=== PATIENT | female | born 1940 | race Caucasian/White ===

== ENCOUNTER 2017-03-13 12:53 | Inpatient (IN) | payer MEDICARE, OTHER ==
[~2017-03-13] VITALS: Ht 162.6 cm; Wt 95.1 kg
--- NOTE | ~2017-03-13 | HEMODYNAMI ---
PATIENT:MILAGROS ISAACS MEDICAL RECORD: [id number] : 38 LOCATION:[facility] D.[address] [id number] ADMISSION DATE: 03/13/17 Generatedon:03/18/201711:48 Patient name: MILAGROS ISAACS Patient #: [id number] SSN: : 1940 Date of study: 03/18/2017 Page: Of Hemodynamic Procedure Report Patient Data Patient Demographics Procedure consent was obtained First Name: MILAGROS Gender: Female Last Name: SHITAL : 1940 Middle Initial: BINH Age: 76 year(s) Patient #: [id number] Race: Unknown Additional ID: [id number] Contact details [address]: [address] [place] [address] DRIVE State: [place] City: [place] Zip code: [address] Past Medical History Allergies Allergen Reaction Date Comments Reported Morphine 03/18/2017 Admission Admission Data Admission Date: 03/13/2017 Admission Time: 16:35 Room #: 2118 Weight (lbs.): 209 Weight (kg.): 94.8 Procedure Procedure Types Cath Procedure Peripheral Cath Diagnostic Procedure Miscellaneous Procedure Description Procedure Date Procedure Date: 03/18/2017 Procedure Start Time: 10:14 Procedure Staff Name Function Mason Fung MD Performing Physician Favio Lamar RT Scrub Ju Contreras RN Nurse Marianne Lu RT Chaser Tar Marianne Lu RT Monitor Mary Matthews RN Nurse Procedure Data Cath Procedure Fluoroscopy Diagnostic fluoroscopy Total fluoroscopy Time: time: 12.9 min 12.9 min Diagnostic fluoroscopy Total fluoroscopy dose: 50 dose: 50 mGy mGy Contrast Material Contrast Material Type Amount (ml) Isovue 300 55 Entry Location Entry Primary Successful Side Size Upsize Upsize Entry Closure Succes sful Closure Location (Fr) 1 (Fr) 2 (Fr) Remarks Device Remarks Femoral Left 5 Fr artery Femoral Left Exoseal artery Diagnostic catheters Device Type Used For End Catheter Placement Diagnostic 5Fr IMT Catheter Procedure Medications Medication Administration Route Dosage Oxygen NC 4 l/min Heparin Flush Bag added to field 2 bags (1000units/500ml NS) Lidocaine 1% added to field 20 Benadryl I.V. 50 mg Fentanyl I.V. 25 mcg Heparin Bolus I.V. 4000 units Hemodynamics Rest Heart Rate: 110 (bpm) Snapshots Pre Cath Intra NCS Post Cath Vital Signs Time Heart Resp SPO2 NIBP (mmHg) Rhythm Pain Sedation Rate (ipm) (%) Status Level (bpm) 9:56:56 104 19 96 69/50(58) NSR 0 (11) 10(A) , No pain 10:01:50 114 16 98 75/49(71) NSR 0 (11) 10(A) , No pain 10:05:50 112 18 96 88/59(79) NSR 0 (11) 10(A) , No pain 10:09:56 111 16 96 82/52(75) NSR 0 (11) 10(A) , No pain 10:14:00 109 17 97 82/51(69) NSR 0 (11) 10(A) , No pain 10:19:17 110 17 94 82/35(56) NSR 0 (11) 9(A) , No pain 10:24:02 109 17 98 80/50(72) NSR 0 (11) 9(A) , No pain 10:28:07 108 17 98 83/40(59) NSR 0 (11) 9(A) , No pain 10:32:15 106 17 99 95/39(56) NSR 0 (11) 9(A) , No pain 10:38:26 108 18 98 87/50(82) NSR 0 (11) 9(A) , No pain 10:48:41 108 16 98 129/45(68) NSR 0 (11) 9(A) , No pain 10:53:07 108 16 97 90/44(68) NSR 0 (11) 9(A) , No pain 11:02:16 108 19 98 143/104(124) NSR 0 (11) 9(A) , No pain 11:06:28 111 18 97 101/76(90) NSR 0 (11) 9(A) , No pain 11:10:32 110 20 97 96/64(76) NSR 0 (11) 9(A) , No pain 11:14:39 112 18 98 85/62(77) NSR 0 (11) 9(A) , No pain 11:18:45 113 19 90 82/64(74) NSR 0 (11) 9(A) , No pain 11:22:43 112 17 91 96/76(86) NSR 0 (11) 9(A) , No pain 11:28:37 112 16 96 82/52(64) NSR 0 (11) 9(A) , No pain 11:32:33 125 17 87 93/78(86) NSR 0 (11) 9(A) , No pain 11:37:34 114 16 95 113/95(103) NSR 0 (11) 9(A) , No pain 11:42:33 112 7 93 Measuring NSR 0 (11) 9(A) , No pain 11:43:57 131 8 94 Time NSR 0 (11) 9(A) Exceeded , No pain Medications Time Medication Route Dose Verified Delivered Reason Notes Effectiveness by by 10:08:01 Oxygen NC 4 Mary Ju used for l/min Cassie Contreras frame sample and pattern supervisor RN 10:08:15 Heparin Flush added 2 Mary Ju used for Bag to bags Cassie Contreras procedure (1000units/500ml field RN RN NS) 10:08:55 Lidocaine 1% added 20ml Mary Ju used for to vial Cassie Contreras procedure RN RN 10:09:15 Benadryl I.V. 50 mg Mayr Ju Per physician Cassie Contreras RN RN 10:17:39 Fentanyl I.V. 25 Mary Ju for sedation mcg Cassie Contreras RN RN 10:22:22 Heparin Bolus I.V. 4000 Mary Ju for units Cassie Contreras anticoagulation RN human resources leader Log Time Note 9:53:29 Patient Weight : 209 kg 9:54:50 Time tracking: Regular hours 9:55:29 Plan of Care:Hemodynamics will remain stable., Cardiac rhythm will remain stable., Comfort level will be maintained., Respiratory function will remain adequate., Patient/ family verbilizes understanding of procedure., Procedure tolerated without complication., Recovers from procedure without complications.. 9:55:36 Patient received from Med II to IR Alert and oriented. Tansferred to table in Supine position. 9:55:37 Correct patient and procedure confirmed by team. 9:55:40 Signed procedure consent form obtained from guardian. 9:55:41 ECG and BP/O2 sat monitors applied to patient. 9:55:43 Vital chart was started 9:55:44 Baseline sample Acquired. 9:55:47 Full Disclosure recording started 9:55:47 - 9:55:52 H&P Date Dictated: 03/18/2017 Within 30 days and on chart.. 9:55:56 Family unavailable. 9:55:59 Patient NPO since Midnight. 9:56:11 Patient allergic to Morphine 9:56:23 Is patient on blood thinner?Yes 9:56:59 Previous problem with sedation/anesthesia? No ? 9:57:02 Snore? No 9:57:04 Sleep apnea? No 9:57:07 Deviated septum? No 9:57:09 Opens mouth fully? Yes 9:57:11 Sticks out tongue? Yes 9:57:19 Patient diabetic? Yes. 9:57:22 If diabetic: On Metformin? No 9:57:26 Airway obstruction? No ? 9:57:33 Dentures? No ? 9:57:35 - 9:57:39 Pre procedure: right dorsailis pedis pulse 0-Absent 9:57:44 Pre procedure: right posterior tibial pulse 0-Absent 9:57:50 Pre procedure: left dorsailis pedis pulse 0-Absent 9:57:57 Pre procedure: left posterior tibial pulse Doppler 9:58:05 IV patent on arrival in left forearm with 0.9% NaCl at O. 9:58:25 Left groin area was prepped with chlora-prep and draped in sterile fashion 9:58:28 - 9:58:33 Use device set IR Diagnostic 9:58:35 Sterile Angiographic Pack opened to sterile field. 9:58:36 Bag Decanter opened to sterile field. 9:59:02 A Diagnostic 5Fr IMT Catheter was advanced over the wire and used for . 9:59:29 Elli HealthSON 145cm guide wire opened to sterile field. 9:59:30 Terumo 5Fr Willis Sheath opened to sterile field. 9:59:33 Micropuncture VSI 4FR kit opened to sterile field. 10:03:55 Alarms reviewed by RKristel N. 10:03:57 Sharps counted by scrub and verified by RKristelNKristel 10:04:06 - 10:04:40 Messi SMALL 260 guide wire opened to sterile field. 10:08:01 Oxygen 4 l/min NC was administered by Ju Contreras RN; used for procedure; 10:08:15 Heparin Flush Bag (1000units/500ml NS) 2 bags added to field was administered by Ju Contreras RN; used for procedure; 10:08:55 Lidocaine 1% 20ml vial added to field was administered by Ju Contreras RN; used for procedure; 10:09:15 Benadryl 50 mg I.V. was administered by Ju Contreras RN; Per physician ; 10:09:36 Messi VALENTINORUNNER 260 .035 glide wire opened to sterile field. 10:09:46 Terumo 6Fr Willis Destination Sheath opened to sterile field. 10:12:29 Physician arrived 10:13:02 --------ALL STOP TIME OUT------ 10:13:03 Final Timeout: patient, procedure, and site verified with staff and physician. All members of the team are in agreement. 10:13:14 Physical assessment completed. ASA score P 3 - A patient with severe systemic disease as per Mason Fung MD. 10:13:24 Sedation plan: IV Moderate Sedation Versed, Fentanyl 10:14:29 Procedure started. 10:14:35 Local anesthetic to left femerol artery with Lidocaine 1% by Mason Fung MD.INITIAL ACCESS ONLY 10:14:39 Arterial access obtained using ultrasound guidance. 10:14:58 A 5 Fr sheath was inserted into the Left Femoral artery 10:17:39 Fentanyl 25 mcg I.V. was administered by Ju Contreras RN; for sedation ; 10:22:22 Heparin Bolus 4000 units I.V. was administered by Ju Contreras RN; for anticoagulation; 10:25:23 CXI SUPPORT .035 135 CM STR catheter opened to sterile field. 10:29:53 [place] Sci Choice PT Extra Support J 300cm .014 gu opened to sterile field. 10:32:19 Turbohawk 1 Small Atherectomy catheter opened to sterile field. 10:42:36 BasixTOUCH Inflation Syringe opened to sterile field. 10:46:26 Inflation number: 1 A Saber 2.5 X 2 X 150 balloon was prepped and advanced across the Undefined1, then inflated to 15 CARLOS for 0:10 (min:sec). 10:58:16 Inflation number: 1 A IN.PACT Admiral 4.0 x 80 x 135 DCB Balloon was prepped and advanced across the Undefined2, then inflated to 14 CARLOS for 0:03 (min:sec). 10:59:49 [place] Sci Choice PT Floppy J 300cm 0.014 guide wi opened to sterile field. 11:02:12 Inflation number: 1 A Saber 3.0 X 2 X 150 balloon was prepped and advanced across the Undefined3, then inflated to 14 CARLOS for 0:10 (min:sec). 11:07:18 St Aris 6Fr sheath opened to sterile field. 11:13:27 Cordis 6Fr Exoseal opened to sterile field. 11:13:27 Sheath removed intact; hemostasis achieved with Exoseal to the Left Femoral artery. 11:14:30 Procedure ended.(Physican Out) 11:16:43 Fluoroscopy time 12.90 minutes. 11:16:48 Flurop Dose total: 50 11:16:48 Fluoroscopy dose: 50 mGy 11:16:55 Contrast amount:Isovue 300 55ml. 11:16:57 Sharps counted by scrub and verified by R.N. 11:18:27 A sheath was inserted into the Left Femoral artery 11:47:43 Procedure and supply charges have been captured, reviewed, submitted an d are correct. 11:48:04 Vital chart was stopped Intervention Summary Intervention Notes Time ActionType Lesion and Equipment Action# Pressure Duration Attributes Used 10:46:26 Inflate Undefined1 Saber 2.5 1 15 00:10 balloon X 2 X 150 balloon 10:58:16 Inflate Undefined2 IN.PACT 1 14 00:03 balloon Admiral 4.0 x 80 x 135 DCB Balloon 11:02:12 Inflate Undefined3 Saber 3.0 1 14 00:10 balloon X 2 X 150 balloon Device Usage Item Name Manufacture Quantity Catalog Number Hospital Part Current Nv nimal Lot# / Charge Number Stock Stock Serial# Code Sterile Cardinal 1 [id number] 952468 5 Angiographic Health Pack Bag Decanter Microtek 1 2002S 727659 11730 557777 5 [employer] Diagnostic [place] 1 [id number] 737525 066354 44095 5 5Fr IMT Scientific Catheter [facility] 1 [id number] 021763 526895 5 [id number] 145cm guide wire Terumo 5Fr Terumo 1 GTH136 364221 190103 566297 40 Willis Sheath Micropuncture VSI VASCULAR 1 [id number] 308551 923891 5 VSI 4FR kit SOLUTIONS [facility] 1 Z79111 421891 275498 5 1860205 260 guide wire [facility] 1 [id number] 303319 483049 5 [id number] ROADRUNNER 260 .035 glide wire Terumo 6Fr Terumo 1 RSR01 705658 27050 331796 5 Willis Destination Sheath CXI SUPPORT [facility] 1 J25058 187892 975417 5 8148687 .035 135 CM STR catheter [place] Sci [place] 1 [id number] 373086 509648 549960 5 Choice PT Scientific Extra Support J 300cm .014 gu Turbohawk 1 Ev3 1 H1-S 706399 1649773 307715 5 Small Atherectomy catheter [facility] 1 [id number] 021938 166291 257990 5 Inflation Medical Syringe Saber 2.5 X 2 Cardinal 1 [id number] 833992 055785 5 X 150 balloon Health IN.PACT Medtronic 1 [id number] 793362 314371 840569 5 [id number] Admiral 4.0 x 80 x 135 DCB Balloon [place] Sci [place] 1 [id number] 669511 580481 299136 5 Choice PT Scientific Floppy J 300cm 0.014 guide wi Saber 3.0 X 2 Cardinal 1 [id number] 346077 610295 5 X [address] Aris [address] [facility] Aris 1 915658 087331 158705 5 9189169 sheath Cordis 6Fr Cardinal 1 EX600 337634 096570 325386 10 [id number] [facility] Signature Audit [place] Stage Time Signature Unsigned Intra-Procedure 03/18/2017 Marianne Lu 11:48:01 AM RT(R) Signatures Monitor : Marianne Lu RT Signature : Date : Time : [place] [id number] [place] [address]
[2017-03-13 14:13] LABS: BASOPHILS 0.1 % (0-2); EOSINOPHILS 1.2 % (0-7); HEMATOCRIT 40.4 % (36.0-48.0); HEMOGLOBIN 13.2 g/dL (12-16); LYMPHOCYTES 22.3 % (15-50); MCH 30.3 pg (26.0-34.0); MCHC 32.7 g/dL (31.0-37.0); MCV 92.9 fL (80.0-100.0); MEAN PLATELET VOLUME 10.4 fL (7.4-10.4); MONOCYTES 5.9 % (2-11); NEUTROPHILS 70.5 % (40-80); PLATELET COUNT 172 10x3/uL (130-400); RBC 4.35 10x6/uL (4.00-5.40); RDW 15.2 % (11.5-14.5); WBC 6.8 10x3/uL (4.8-10.8)
[2017-03-13 14:33] LABS: ALBUMIN 3.3 g/dL (3.4-5.0); ALKALINE PHOSPHATASE 74 U/L (46-116); ALT (SGPT) 15 U/L (10-68); BILIRUBIN - TOTAL 0.63 mg/dL (0.2-1.3); CALC OSMOLALITY 280 mosm/kg (275-300); CALCIUM 9.3 mg/dL (8.5-10.1); CARBON DIOXIDE 21.9 mmol/L (21.0-32.0); CHLORIDE - SERUM 96 mmol/L (98-107); CREATININE - SERUM 4.1 mg/dL (0.6-1.3); POTASSIUM - SERUM 4.4 mmol/L (3.5-5.1); PROTEIN - SERUM 8.1 g/dL (6.4-8.2); SODIUM 130 mmol/L (136-145); UREA NITROGEN 59 mg/dL (7-18); eGFR NON AFRICAN AMERICAN 11 mL/min (90-120)
[2017-03-13 14:34] LABS: GLUCOSE 150 mg/dL (74-106)
[2017-03-13 14:40] LABS: INR 3.56 (0.85-1.17)
[2017-03-13 14:41] LABS: APTT 51.6 SECONDS (22.8-39.4)
[2017-03-13 14:57] LABS: D-DIMER-QUANTITATIVE < 0.27 ug/mLFEU (0.20-0.54)
[2017-03-13 14:58] LABS: CHOL - HDL RATIO 2.7 ratio (2.3-4.1); CHOLESTEROL, TOTAL 150 mg/dL (0-200); CKMB 4.2 U/L (0.0-3.6); CREATINE KINASE 67 UL (21-215); HDL CHOLESTEROL 55 mg/dL (32-96); LDL CHOLESTEROL 70 mg/dL (0-100); LDL-HDL RATIO 1.3 ratio (1.5-3.5); TRIGLYCERIDE 128 mg/dL (30-200)
[2017-03-13 15:02] LABS: PRO BNP 31802 pg/mL (0-450)
[2017-03-13 15:04] LABS: TROPONIN-I 0.103 ng/mL (0.000-0.060)
--- NOTE | 2017-03-13 18:24 | NUR ---
RECEIVED PT TO ROOM 2117 VIA STRETCHER RESP UNLABORED SKIN COOL DRY BLEs WITH 4+ EDEMA AND RED PPPX4 WEAK IN LOWER EXTREMITIES TELEMETRY APPLIED CAF RATE 80 SALINE LOCK TO LAC WITH 20 GA IV CATH SITE FREE OF REDNESS OR EDEMA
[2017-03-13 19:44] VITALS: BMI 21.1
--- NOTE | 2017-03-13 19:55 | NUR ---
INITIAL ROUNDS MADE.PT SITTING UP IN BED WATCHING TV. DENIES NEEDS OR C/O AT THIS TIME. CALL LIGHT IN REACH. WILL CONT TO MONITOR. FAMILY IN ROOM.
[2017-03-13 20:00] VITALS: BP 104/49
--- NOTE | 2017-03-13 20:30 | NUR ---
CALLED CHIEF OF POLICE WITH NEED FOR ZOSYN, NEW ORDER.
[2017-03-13] MEDS ORDERED: GABAPENTIN100 MG PO (20:52)
[2017-03-13] MEDS ORDERED: RESTORIL15 MG PO (20:52)
[2017-03-13] MEDS ORDERED: HYDROCODONE-APA1 TAB PO (20:53)
[2017-03-13] MEDS ORDERED: BENICAR HCT 40-1 TA1 PO (20:53)
--- NOTE | 2017-03-13 21:12 | NUR ---
FSBS 111. NO COVERAGE NEEDED.
[2017-03-13 21:29] LABS: CREATINE KINASE 49 UL (21-215)
--- NOTE | 2017-03-13 21:45 | NUR ---
REMINDED SUPERVISOR WARPING DEPARTMENT NEED ZOSYN.
[2017-03-14] VITALS: BP 103/53
--- NOTE | 2017-03-14 00:29 | NUR ---
CARCASS TRIMMER AT BEDSIDE FOR VS. NEEDS ADDRESSED, CALL LIGHT IN REACH. WILL CONT TO MONITOR.
[2017-03-14 02:02] LABS: APPEARANCE CLEAR (CLEAR); BILIRUBIN NEGATIVE (NEGATIVE); COLOR YELLOW (YELLOW); GLUCOSE NEGATIVE (NEGATIVE); KETONE NEGATIVE (NEGATIVE); LEUKOCYTE ESTERASE NEGATIVE (NEGATIVE); NITRITE NEGATIVE (NEGATIVE); PROTEIN NEGATIVE (NEGATIVE); SPECIFIC GRAVITY 1.015 (1.005-1.020); UROBILINOGEN NORMAL (NORMAL)
[2017-03-14 03:36] LABS: BASOPHILS 0 % (0-2); HEMATOCRIT 33.7 % (36.0-48.0); HEMOGLOBIN 11.2 g/dL (12-16); IMMATURE GRANULOCYTES 0.2 % (0-5); LYMPHOCYTES 28.5 % (15-50); MCH 30.1 pg (26.0-34.0); MCHC 33.2 g/dL (31.0-37.0); MEAN PLATELET VOLUME 10.5 fL (7.4-10.4); MONOCYTES 8.1 % (2-11); NEUTROPHILS 62.2 % (40-80); PLATELET COUNT 149 10x3/uL (130-400); RBC 3.72 10x6/uL (4.00-5.40); RDW 15.1 % (11.5-14.5)
[2017-03-14 03:39] LABS: MCV 90.6 fL (80.0-100.0)
[2017-03-14 03:49] LABS: APTT 53.4 SECONDS (22.8-39.4); INR 4.02 (0.85-1.17); PROTIME 39.7 SECONDS (11.6-15.0)
[2017-03-14 04:00] VITALS: BP 114/57
[2017-03-14 04:09] LABS: ALBUMIN 2.7 g/dL (3.4-5.0); ALKALINE PHOSPHATASE 58 U/L (46-116); AMYLASE - SERUM 27 U/L (25-115); BILIRUBIN - DIRECT 0.27 mg/dL (0.00-0.30); BILIRUBIN - TOTAL 0.63 mg/dL (0.2-1.3); C-REACTIVE PROTEIN 3.1 mg/dL (0.0-0.9); CALCIUM 8.6 mg/dL (8.5-10.1); CARBON DIOXIDE 20.8 mmol/L (21.0-32.0); CHLORIDE - SERUM 98 mmol/L (98-107); CKMB 3.7 U/L (0.0-3.6); CREATINE KINASE 40 UL (21-215); CREATININE - SERUM 3.8 mg/dL (0.6-1.3); LIPASE 180 U/L (73-393); POTASSIUM - SERUM 4.5 mmol/L (3.5-5.1); PROTEIN - SERUM 6.5 g/dL (6.4-8.2); SODIUM 131 mmol/L (136-145); THYROID STIMULATING HORMONE 2.73 uIU/mL (0.36-3.74); UREA NITROGEN 62 mg/dL (7-18); eGFR NON AFRICAN AMERICAN 12 mL/min (90-120)
[2017-03-14 04:17] LABS: ALT (SGPT) 11 U/L (10-68); CALC OSMOLALITY 280 mosm/kg (275-300); GLUCOSE 99 mg/dL (74-106); PRO BNP 34611 pg/mL (0-450); TROPONIN-I 0.152 ng/mL (0.000-0.060)
[2017-03-14 04:45] LABS: ERYTHROCYTE SEDIMENTATION RATE 22 mm/hr (0-30)
[2017-03-14 08:40] VITALS: BP 97/42
[2017-03-14 09:48] LABS: CKMB 2.8 U/L (0.0-3.6); CREATINE KINASE 50 UL (21-215); TROPONIN-I 0.116 ng/mL (0.000-0.060)
--- NOTE | 2017-03-14 11:18 | NUR ---
I SPOKE WITH DR CHERY R/T PATIENT'S SWOLLEN RED LEGS. PT/INR IS 39.7/4.02, PTT IS 53.4. HE DOES NOT WANT ANY FURTHER BLOOD THINNERS OR SCD'S AT THIS TIME.
[2017-03-14 12:31] VITALS: BP 110/49
[2017-03-14 12:37] VITALS: Ht 162.6 cm; Wt 95.1 kg
[2017-03-14 16:58] VITALS: BP 116/59
[2017-03-14 19:00] VITALS: BP 67/36
--- NOTE | 2017-03-14 19:00 | NUR ---
INITIAL ROUNDS MADE. PT SITTING UP ON SIDE OF BED WITH AT BEDSIDE. C/O FEELING VERY WEAK, "EVEN WEAKER AND MORE 'BLAH' THAN YESTERDAY". ENCOURAGE PT TO USE BEDPAN WHEN NEEDING TO VOID TONIGHT, PT AGREEABLE.
[2017-03-15] VITALS: BP 103/47
--- NOTE | 2017-03-15 00:05 | NUR ---
FLIGHT INSTRUCTOR AT BEDSIDE FOR VS. NEEDS ADDRESSED AT THIS TIME. CALL LIGHT IN REACH. WILL CONT TO MONITOR.
--- NOTE | 2017-03-15 04:58 | NUR ---
IV PULLED OUT FROM LEFT AC, CATH TIP INTACT. RESITED TO LEFT FA, 20G X1 STICK BY FRANKIE BRIGHT. RESUMED BUMEX GTT AT THIS TIME.
[2017-03-15 05:38] VITALS: BP 83/40
[2017-03-15 05:46] LABS: BASOPHILS 0.1 % (0-2); EOSINOPHILS 0.9 % (0-7); HEMOGLOBIN 12.2 g/dL (12-16); LYMPHOCYTES 34.8 % (15-50); MCH 30.1 pg (26.0-34.0); MCV 91.4 fL (80.0-100.0); MONOCYTES 7.1 % (2-11); NEUTROPHILS 57.1 % (40-80); PLATELET COUNT 173 10x3/uL (130-400); RBC 4.05 10x6/uL (4.00-5.40); RDW 15.4 % (11.5-14.5)
[2017-03-15 06:27] LABS: CALCIUM 8.9 mg/dL (8.5-10.1); CARBON DIOXIDE 18.1 mmol/L (21.0-32.0); CREATININE - SERUM 3.8 mg/dL (0.6-1.3); POTASSIUM - SERUM 4.1 mmol/L (3.5-5.1)
[2017-03-15 12:00] VITALS: BP 73/32
--- NOTE | 2017-03-15 15:02 | NUR ---
TELEMETRY SR. AT BS. CALL LIGHT IN REACH. WILL CONT. PLAN OF CARE.
[2017-03-15 16:28] VITALS: BP 99/44
--- NOTE | 2017-03-15 19:00 | NUR ---
INITIAL ROUNDS MADE. PT SITTING UP IN BED WATCHING TV. NO NEEDS OR C/O VOICED AT THIS TIME. CALL LIGHT IN REACH. WILL CONT TO MONITOR.
[2017-03-15 20:00] VITALS: BP 93/55
[2017-03-15 22:57] LABS: HEMATOCRIT 33.7 % (36.0-48.0); HEMOGLOBIN 11.1 g/dL (12-16); MCH 30.2 pg (26.0-34.0); MCHC 32.9 g/dL (31.0-37.0); MCV 91.6 fL (80.0-100.0); MEAN PLATELET VOLUME 10.5 fL (7.4-10.4); RBC 3.68 10x6/uL (4.00-5.40); RDW 15.4 % (11.5-14.5); WBC 5.4 10x3/uL (4.8-10.8)
[2017-03-15 23:48] LABS: APTT 56.8 SECONDS (22.8-39.4); INR 3.88 (0.85-1.17); PROTIME 38.6 SECONDS (11.6-15.0)
[2017-03-16] VITALS: BP 101/51
[2017-03-16 04:00] VITALS: BP 89/45
--- NOTE | 2017-03-16 04:40 | NUR ---
LEATHER STRETCHER AT BEDSIDE FOR VS. NEEDS ADDRESSED AT THIS TIME. CALL LIGHT IN REACH. WILL CONT TO MONITOR.
[2017-03-16 06:36] LABS: BASOPHILS 0.1 % (0-2); EOSINOPHILS 0.4 % (0-7); HEMATOCRIT 34.7 % (36.0-48.0); HEMOGLOBIN 11.5 g/dL (12-16); IMMATURE GRANULOCYTES 0.2 % (0-5); LYMPHOCYTES 17.4 % (15-50); MCH 30.5 pg (26.0-34.0); MCHC 33.1 g/dL (31.0-37.0); MEAN PLATELET VOLUME 10.8 fL (7.4-10.4); MONOCYTES 6.4 % (2-11); NEUTROPHILS 75.5 % (40-80); PLATELET COUNT 144 10x3/uL (130-400); RBC 3.77 10x6/uL (4.00-5.40); RDW 15.9 % (11.5-14.5)
[2017-03-16 06:48] LABS: WBC 11.3 10x3/uL (4.8-10.8)
[2017-03-16 07:09] LABS: ALBUMIN 2.7 g/dL (3.4-5.0); ANION GAP 21.1 mmol/L (8-16); BILIRUBIN - TOTAL 0.6 mg/dL (0.2-1.3); CALCIUM 8.6 mg/dL (8.5-10.1); CARBON DIOXIDE 17.9 mmol/L (21.0-32.0); CREATININE - SERUM 4.4 mg/dL (0.6-1.3); PHOSPHOROUS 7.3 mg/dL (2.5-4.9); VANCOMYCIN - RANDOM 10.2 ug/mL (10.0-20.0)
[2017-03-16 07:15] LABS: INR 4.38 (0.85-1.17); PROTIME 42.5 SECONDS (11.6-15.0)
[2017-03-16 08:07] LABS: APTT > 200.0 SECONDS (22.8-39.4)
[2017-03-16 08:33] VITALS: BP 70/30
[2017-03-16 13:17] VITALS: BP 113/86
--- NOTE | 2017-03-16 13:56 | NUR ---
Patient Name: MILAGROS ISAACS Admission Status: ER Accout number: [id number] Admission Date: 03-13-2017 : 1940 Admission Diagnosis:HEART FAILURE, UNSPECIFIED Attending: LORENA Current LOS: 3 Anticipated DC Date: TO BE DETERMINED Planned Disposition: Home Primary Insurance: MEDICARE A & B Discharge Planning Comments: * Is the patient Alert and Oriented? Yes 0 * How many steps to enter\exit or inside your home? NONE 0 * PCP DR. SINGH 0 * Pharmacy [facility] 0 * Preadmission Environment Home with Family 0 * ADLs Partial Dependent 0 * Partial ADLs (Assistance needed) Medication Management Transfers 0 * Equipment Cane Walker 0 * Other Equipment NO MEDICAL EQUIPMENT PROVIDER PREFERENCE 0 * List name and contact numbers for known caregivers / representatives who currently or will assist patient after discharge: EMI ISAACS, SPOUSE, 0 * Community resources currently utilized None 0 * Please name any agencies selected above. NONE 0 * Additional services required to return to the preadmission environment? No 0 * Can the patient safely return to the preadmission environment? Yes 0 * Has this patient been hospitalized within the prior 30 days at any hospital? No 0 CM MET WITH PT IN ROOM TO DISCUSS DISCHARGE PLANNING AND NEEDS. PT REPORTS LIVING AT HOME DEPENDENT UPON HER SPOUSE WHO ASSISTS WITH MEDICATION MANAGEMENT AND TRANSFERS TO TUB AND TOILET. PT HAS CANE AND WALKER AT [facility] WITH NO MEDICAL EQUIPMENT PROVIDER PREFERENCE. PT HAS NO OUTSIDE SERVICES ASSISTING IN THE HOME. CM DISCUSSED AVAILABILITY OF HOME HEALTH, REHAB SERVICES AND MEDICAL EQUIPMENT. PT REPORTS UNKNOWN DISCHARGE NEEDS AT THIS TIME WITH PLAN TO RETURN HOME WITH SPOUSE, REPORTS HER SPOUSE WILL PICK HER UP FOR DISCHARGE HOME. IMPORTANT MESSAGE FROM MEDICARE PROVIDED AND EXPLAINED. PT HAS UNKNOWN DISCHARGE NEEDS WITH PLAN TO RETURN HOME WITH ASSISTANCE OF SPOUSE. CM TO FOLLOW AND ASSIST NEEDED. Stove Carriage Operator: Carlos Bates
[2017-03-16 17:30] VITALS: BP 84/38
[2017-03-16 20:00] VITALS: BP 98/58
--- NOTE | 2017-03-16 20:02 | NUR ---
RESUMED CARE OF PT, LYING IN BED RESPIRATIONS EVEN AND UNLABORED ON 2LPM VIA NC. 97 SR ON TELEMETRY. LEFT FOREARM INFUSING HEPARIN @ 4. REPOSITIONED FOR COMFORT TO LEFT SIDE. FAMILY AT BEDSIDE. CALL LIGHT IN REACH. WILL CONTINUE TO MONITOR. SEE NURSE ASSESSMENT.
--- NOTE | 2017-03-16 20:10 | NUR ---
SPOKE WITH BRENDEN PRUITT APN ABOUT VITAMIN K SHOT FOR ELEVATED INR, SHE WANTS US TO REFER THIS TO CARDIAC. WILL CONTINUE TO MONITOR.
--- NOTE | 2017-03-16 21:28 | NUR ---
DR. RUIZ, REGARDING VITAMIN K INJECTION. AWAITING CALL BACK.
--- NOTE | 2017-03-16 22:46 | NUR ---
SPOKE WITH STEPHANY FROM IR, AT THIS TIME I HAVE BEEN UNABLE TO OBTAIN ORDERS FOR A VITAMIN K INJECTION. WILL HOLD OFF UNTIL AM.
--- NOTE | 2017-03-16 23:39 | NUR ---
UNABLE TO OBTAIN LAB DRAW AT THIS TIME, WILL ATTEMPT AGAIN IN THE AM
[2017-03-17] VITALS: BP 92/42
[2017-03-17 06:55] LABS: BASOPHILS 0.1 % (0-2); EOSINOPHILS 0.5 % (0-7); HEMATOCRIT 32.3 % (36.0-48.0); HEMOGLOBIN 10.4 g/dL (12-16); IMMATURE GRANULOCYTES 0.4 % (0-5); LYMPHOCYTES 24.8 % (15-50); MCH 29.7 pg (26.0-34.0); MCHC 32.2 g/dL (31.0-37.0); MCV 92.3 fL (80.0-100.0); MONOCYTES 7.1 % (2-11); NEUTROPHILS 67.1 % (40-80); PLATELET COUNT 138 10x3/uL (130-400)
[2017-03-17 07:00] LABS: WBC 7.9 10x3/uL (4.8-10.8)
[2017-03-17 07:12] LABS: PROTIME 34.3 SECONDS (11.6-15.0)
[2017-03-17 07:15] LABS: INR 3.35 (0.85-1.17)
[2017-03-17 07:16] LABS: ANION GAP 17.5 mmol/L (8-16); CALCIUM 8.6 mg/dL (8.5-10.1); CARBON DIOXIDE 18.3 mmol/L (21.0-32.0); CREATININE - SERUM 4.9 mg/dL (0.6-1.3); POTASSIUM - SERUM 3.8 mmol/L (3.5-5.1)
[2017-03-17 07:54] VITALS: BP 140/86
--- NOTE | 2017-03-17 09:00 | NUR ---
WOUND CARE CONSULT: SACRAL/COCCYX AREA IS BLANCHABLE RED AND TENDER. PT IS VERY THIN ALSO. SHE DOES NOT WANT AN OVERLAY MATTRESS. SHE IS HAVING DIFFICULTY REPOSITIONING OFF HER BOTTOM D/T HAVING TO KEEP HER LEGS ELEVATED. RIGHT LOWER LEG IS DISCOLORED PURPLE AND HAS DEVELOPED BLISTERS. APPLIED A MEPILEX SACRAL DRESSING OVER SACRUM FOR EXTRA CUSHION BUT ALSO STRESSED THE IMPORTANCE OF PRESSURE RELIEF. ALL VOICED UNDERSTANDING.
[2017-03-17 12:01] VITALS: BP 101/82
[2017-03-17 16:41] VITALS: BP 90/74
[2017-03-17 20:00] VITALS: BP 109/87
[2017-03-18] VITALS (16 sets, daily range): BP systolic 77–107; BP diastolic 43–77
--- NOTE | 2017-03-18 00:35 | NUR ---
SUPERVISOR CUTTING AND SEWING ROOM AT BEDSIDE TO OBTAIN VITALS, CALL LIGHT IN REACH. WILL CONTINUE WITH PLAN OF CARE.
[2017-03-18 06:10] LABS: BASOPHILS 0.1 % (0-2); EOSINOPHILS 0.3 % (0-7); HEMATOCRIT 30.4 % (36.0-48.0); IMMATURE GRANULOCYTES 0.1 % (0-5); LYMPHOCYTES 16.8 % (15-50); MCH 30.4 pg (26.0-34.0); MCHC 32.9 g/dL (31.0-37.0); MCV 92.4 fL (80.0-100.0); MEAN PLATELET VOLUME 10.9 fL (7.4-10.4); MONOCYTES 6.5 % (2-11); NEUTROPHILS 76.2 % (40-80); PLATELET COUNT 121 10x3/uL (130-400); RBC 3.29 10x6/uL (4.00-5.40); RDW 16.2 % (11.5-14.5); WBC 7.7 10x3/uL (4.8-10.8)
[2017-03-18 06:26] LABS: APTT 66.7 SECONDS (22.8-39.4)
[2017-03-18 06:29] LABS: INR 1.64 (0.85-1.17); PROTIME 19.4 SECONDS (11.6-15.0)
[2017-03-18 06:32] LABS: ALBUMIN 2.3 g/dL (3.4-5.0); ANION GAP 20.2 mmol/L (8-16); BILIRUBIN - TOTAL 0.5 mg/dL (0.2-1.3); CALCIUM 8.5 mg/dL (8.5-10.1); CREATININE - SERUM 5.5 mg/dL (0.6-1.3); PHOSPHOROUS 8.8 mg/dL (2.5-4.9); POTASSIUM - SERUM 4.2 mmol/L (3.5-5.1); PROTEIN - SERUM 6.3 g/dL (6.4-8.2); VANCOMYCIN - RANDOM 22.7 ug/mL (10.0-20.0)
--- NOTE | 2017-03-18 06:33 | NUR ---
NO CHANGES FROM PREVIOUS ASSESSMENT, CALL LIGHT IN REACH. HIBICLENSE BATH AND LINENS CHANGED. INR THERAPEUTIC @ 1.64. REMAINS NPO. WILL CONTINUE TO MONITOR.
--- NOTE | 2017-03-18 07:08 | NUR ---
FSBS 77 NO COVERAGE
[2017-03-18 08:22] LABS: SPE - A/G RATIO 0.9 (0.7-1.7); SPE - ALBUMIN 3.1 g/dL (2.9-4.4); SPE - ALPHA-1 GLOBULIN 0.3 g/dL (0.0-0.4); SPE - ALPHA-2 GLOBULIN 0.5 g/dL (0.4-1.0); SPE - BETA GLOBULIN 0.9 g/dL (0.7-1.3); SPE - GAMMA GLOBULIN 1.6 g/dL (0.4-1.8); SPE - M-SPIKE 0.2 g/dL (Not Observed); SPE - TOTAL PROTEIN 6.4 g/dL (6.0-8.5)
--- NOTE | 2017-03-18 08:26 | EC ---
PATIENT:MILAGROS ISAACS DATE OF SERVICE: 03/13/17 SEX: F MEDICAL RECORD: [id number] DATE OF : [birth year] LOCATION:D.M2 D.211 AGE OF PATIENT: 76 ADMISSION DATE: 03/13/17 REFERRING PHYSICIAN: INTERPRETING PHYSICIAN: BENITA TAO MD ECHOCARDIOGRAM REPORT ECHO CHARGES 4 ECHO COMPLETE CLINICAL DIAGNOSIS: CHF - R/O PERICARDIAL EFFUSION ECHOCARDIOGRAPHIC MEASUREMENTS (adult normal given) AC root (d.<3.7cm) 2.3 LV Septum d (<1.2 cm> 1.2 Valve Excursion 1.4 LV Septum (systole) 1.9 Left Atria (s.<4.0cm> 3.9 LVPW d(<1.2cm) 1.2 RV (d.<2.3cm) 2.3 LVPW (sytole) 1.8 LV diastole(<5.6CM) 3.8 MV E-F(>70mm/sec) LV systole 1.8 LVOT Diameter 1.5 MV exc.(>10mm) Est.ejection fraction (50-75%) Pericardial Effusion Y DOPPLER: LVIT A 35.0 E 84.0 LA RVSP 55.0 LVOT 102 AOP1/2T Asc. Ao 174 RVOT 51.0 RA PA 86.0 AV Gradient Peak 12.2 AV Mean 6.0 AV Area 1.0 MV Gradient Peak 4.5 MV Mean 1.3 MV Area COMMENTS: Employment Training Specialist: Anthony ROUSSEAU Manufacturing Sales Representative:Kwesi Finnegan TAPE# PACS DATE OF SERVICE: 03/14/2017 Adequate 2D echo, color flow and spectral Doppler, M-mode. LVH is present. LV internal dimension is normal. Wall motion is normal. EF is greater than or equal to 55%. Aortic valve sclerosis without stenosis by Doppler interrogation. The left atrium is normal at 3.9 cm. Mitral valve shows no prolapse. Moderate MR. Right-sided chamber is grossly normal. Moderate TR. No significant pericardial effusion is noted. TRANSINT:[id number] Voice Confirmation ID: [id number] DOCUMENT ID: [id number] ECHOCARDIOGRAM REPORT [id number] MILAGROS ISAACS BENITA TAO MD at 0826 CC: [id number] DICTATION DATE: 03/14/17 1220 SIDE GLUER: 03/14/17 1325 ADM IN [facility] [address] [facility], [facility]
--- NOTE | 2017-03-18 10:00 | NUR ---
PT TO INTERVENTIONAL RADIOLOGY FOR PROCEDURE VIA BED
--- NOTE | 2017-03-18 12:53 | NUR ---
DILAUDID 0.25 MG G[facility]
--- NOTE | 2017-03-18 13:23 | NUR ---
PT STATES PAIN 02/14
--- NOTE | 2017-03-18 13:54 | NUR ---
Nutrition follow-up: Diet: Low sodium pureed PO intake ~50% of meals Pt has been NPO for procedure today Labs reviewed Wt: 109# ?? Close to dialysis starting Will continue to provide food choices and honor food preferences. RDN following.
--- NOTE | 2017-03-18 15:00 | NUR ---
RECEIVED PT BACK FROM PROCEDURE DRSG TO LT GROIN C/D/I WITH SAND BAG OVER GROIN AREA BLES PULSES BY DOPPLER LT SUBCLAVIAN TRIALYSIS CATH INTACT DRSG C/D/I PT LETHARGIC BUT RESPONSIVE TELEMETRY INTACT ST RATE 113 RESP 16 B/P
--- NOTE | 2017-03-18 16:06 | NUR ---
PT GIVEN 500 MLS NORMAL SALINE BOLUS PER IV FOR B/P
--- NOTE | 2017-03-18 16:33 | NUR ---
PT TRANSFERED TO ICU ROOM 2302 VIA BED PER ORDERS PT LETHARGIC/SEDATED B/P WAS UP TO 86/67 PULSE RATE 112
--- NOTE | 2017-03-18 16:36 | CN ---
PATIENT NAME:MILAGROS ISAACS MEDICAL RECORD: [id number] : 38 LOCATION:[facility] ADMIT DATE: 03/13/17 ACCOUNT: [id number] CONSULTING PHYSICIAN: LAURA SHERIDAN MD REFERRING PHYSICIAN: MARILYNN PEREYRA MD DATE OF CONSULTATION: 03/15/2017 Cardiology Consultation DIAGNOSES: 1. Elevated troponin. 2. Renal insufficiency. 3. Coronary artery disease. 4. Status post coronary artery bypass graft surgery. 5. Peripheral vascular disease. 6. Lower extremity cellulitis. 7. Hypertension. HISTORY OF PRESENT ILLNESS: Mrs. Isaacs is well known to us with a past history of coronary artery disease, status post coronary artery bypass graft surgery. She was admitted with noncardiac reasons, mostly lower extremity cellulitis on her right lower extremity. She does have T-wave inversions on her EKG. She had 3 sublingual nitro last week for chest pain/angina however, then she was placed on a nitropatch and has not had any chest pain since. She does have a history of coronary artery disease, status post coronary artery bypass graft surgery in the distant past. Her creatinine is 3.8. Troponin was 0.116. PHYSICAL EXAMINATION: GENERAL APPEARANCE: Well-nourished, well-developed, appears stated age. Level of distress, comfortable. PSYCHIATRIC: Mental status, alert, normal affect. Orientation, oriented to time, place and person. EYES: Lids and conjunctiva, noninjected. No discharge, no pallor. ENT: Lips, teeth, gums, normal dentition. Oropharynx, no cyanosis, no pallor. NECK: Carotid arteries, bilateral normal upstroke, no bruits, no thrills. JUGULAR VEINS: No jugular venous pressure or distention. CERVICAL LYMPH NODES: Nontender, nonenlarged. THYROID: Not enlarged. Nontender. No nodules. LUNGS: Respiratory effort, unlabored. CHEST: Normal curvature. No thoracic deformity. No chest wall tenderness. Percussion, resonant. Auscultation, clear. No wheezes, no rales, no rhonchi. CARDIOVASCULAR: Precordial exam, nondisplaced. No heaves or pericardial thrills. Rate and rhythm, regular. Heart sounds, normal S1, normal S2. No S3, no gallop, no rub. Systolic murmur, not heard. Diastolic murmur, not heard. EXTREMITIES: No cyanosis, no edema. Peripheral pulses, full and equal in all extremities, except as noted. No bruits appreciated. ABDOMEN: Soft, nondistended. Normal aorta. No bruit. Nontender. No masses. Liver, nontender, no hepatomegaly. Spleen, nontender, no splenomegaly. MUSCULOSKELETAL: No joint tenderness. No joint swelling. No erythema. NEUROLOGICAL: Normal gait, normal strength, normal tone. SKIN: Warm and dry. REVIEW OF SYSTEMS: The patient reports easy bruising but reports no swollen glands. The patient reports no fever, no night sweats, no significant weight gain, no significant weight loss. No significant exercise tolerance. The CONSULT REPORT [id number] SHITALMILAGROS PURCELL patient reports no dry eyes, no irritation, no vision change. Patient reports no difficulty hearing and no ear pain. Patient reports no frequent nose bleeds or nose and sinus problems. Patient reports on arm pain on exertion. No shortness of breath while lying down. No history of heart murmur. Patient reports no cough, no wheezing or coughing up blood. Patient reports no abdominal pain, no vomiting. Normal appetite. No diarrhea and not vomiting blood. No nausea and no constipation. Patient reports no incontinence. No difficulty urinating. No hematuria. No increased frequency. Patient reports no muscle aches. No weakness, no arthralgias, no back pain. No swelling of the extremities. Patient reports no abnormal mole, no jaundice, no rashes. Reports no loss of consciousness. No weakness and no numbness. No seizures, dizziness, or headaches. The patient reports no depression, no sleep disturbance, feeling safe in a relationship and no alcohol abuse. Patient reports on fatigue. Reports no runny nose or sinus pressure. No itching, no hives, and no frequent sneezing. OVERALL IMPRESSION: Chest pain, resolved with nitro. No further chest pain since the nitropatch. With her multiple other medical problems as well as her renal insufficiency, would not proceed with coronary angiography, only treat medically at this time. With her low blood pressure, her medical management is optimized. She has had no further pain with nitro patch. No other cardiac workup treatment is necessary. TRANSINT:[id number] Voice Confirmation ID: [id number] DOCUMENT ID: [id number] LAURA SHERIDAN MD at 1636 CC: [id number] DICTATION DATE: 03/15/17 1241 NURSERY WORKER: 03/15/17 1905 ADM IN [facility] [address] [id number]
--- NOTE | 2017-03-18 17:24 | NUR ---
1635 PT RECEICED TO THE UNIT FROM THE FLOOR. PT BP WAS 80S/40S ON THE FLOOR AND PT SEDATED. HOOKED UP TO MONITORING. BP READING OF 86/67 HR 112. O2 SATS 94% 5L. PT EMAR REVIEWED WELL CHART AND FOUND TO HAVE BEEN GIVEN 0.2 DILAUDID AFTER RETURNING FROM INTERVENTIONAL RADIOLOGY HAVING BEEN SEDATED FOR PROCEDURE. BLOOD GLUCOSE CHECKED AND FOUND TO BE 64, LAST RECORDED CHECK WAS WITH MORNING LABS WITH A VALUE OF 77. HALF AMP OF D50 GIVEN. 0.2 MG OF NARCAN GIVEN. PT BECAME VERY ALERT AND VOCAL. SCREAMING OUT WE WERE TRYING TO KILL HER. SHE IS ALERT AND ORIENTED. SCREAMING OUT. WANTS TO SIT UP. HAS TO REMAIN FLAT UNTIL 6PM. AND DAUGHTER AT BEDSIDE TRYING TO KEEP HER CALM. BP AT MOST RECENT READING IS 114/55, HR IS ELEVATED AT 130. WILL CONTINUE TO MONITOR.
--- NOTE | 2017-03-18 19:00 | NUR ---
REPORT RECIEVED, INITIAL ASSESSMENT COMPLETE, PLEASE SEE FLOW SHEETS FOR DETAILS. BED LOW AND LOCKED, CALL LIGHT IN REACH. FAMILY AT BEDSIDE. PT DENIES PAIN/NEEDS ATT. PPP. LLE RED/BRUISING/BLISTERS. GENERALIZED BRUISINGG ALL OVER PT. BP LOW, WILL CONTACT MD TO ADDRESS.
--- NOTE | 2017-03-18 19:00 | NUR ---
ALL ORDERS CANCELLED WITH THE TRANSFER ORDER. PT NOW HAS NO MEDICATIONS OR LABS ORDERED. HAVE PAGED CLOTH COVERED HELMET PULLER SERVICE OF DR CHERY
--- NOTE | 2017-03-18 19:34 | NUR ---
CALLED ANSWERING SERVICE AGAIN. HAVE NOT YET HAD A CALL BACK.
--- NOTE | 2017-03-18 19:47 | NUR ---
HAVE NOT YET GOT A CALL BACK FROM [facility] PHYSICIAN SERVICE TRANSFORMER REPAIR SUPERVISOR. WILL PASS ALONG NEED FOR PAGING TO INK TECHNICIAN NURSE
--- NOTE | 2017-03-18 20:15 | NUR ---
SPOKE WITH DR FRANCO POST PAGING, INFORMED HIM OF PT STATUS I.E. LOW BP. RECIEVED NEW ORDERS.
--- NOTE | 2017-03-18 21:00 | NUR ---
PT MOVED TO ANOTHER ROOM WITH WORKING MONITOR. BED LOW AND LOCKED. MONITORING BP. WILL CONTINUE POC.
[2017-03-18 21:19] LABS: INR 1.33 (0.85-1.17); PROTIME 16.3 SECONDS (11.6-15.0)
[2017-03-18 21:28] LABS: APTT 83.5 SECONDS (22.8-39.4)
--- NOTE | 2017-03-18 23:00 | NUR ---
REASSESSMENT COMPLETE, PLEASE SEE FLOW SHEETS FOR DETAILS. PT COMPLAINS OF PAIN, NOTIFIED HER THAT SHE HAD NO PAIN MEDS AND THAT THEY WERE NOT A GOOD IDEA AT THIS PONT DUE TO BP DROPS. BP STABLE ATT. BED LOW AND LOCKED, CALL LIGHT IN REACH, WILL CONTINUE POC.
[2017-03-19] VITALS (16 sets, daily range): BP systolic 56–107; BP diastolic 33–82
--- NOTE | 2017-03-19 01:00 | NUR ---
AT BEDSIDE TO HELP GIVE MEDS ETC. VSS ATT, BED LOW AND LOCKED, CALL LIGHT IN REACH. WILL CONTINUE POC.
--- NOTE | 2017-03-19 03:00 | NUR ---
REASSESSMENT COMPLETE, PLEASE SEE FLOW SHEETS FOR DETAILS. PT TURNED AND LEGS REPOSITIONED ON PILLOW AND ELEVATED. PPP. BED LOW AND LOCKED, CALL LIGHT IN REACH. VSS ATT, WILL CONTINUE POC.
[2017-03-19 03:53] LABS: BASOPHILS 0 % (0-2); EOSINOPHILS 0 % (0-7); HEMATOCRIT 30.6 % (36.0-48.0); HEMOGLOBIN 9.8 g/dL (12-16); IMMATURE GRANULOCYTES 0.1 % (0-5); LYMPHOCYTES 8.6 % (15-50); MCH 29.5 pg (26.0-34.0); MCV 92.2 fL (80.0-100.0); MEAN PLATELET VOLUME 10.6 fL (7.4-10.4); NEUTROPHILS 87.3 % (40-80); PLATELET COUNT 109 10x3/uL (130-400); RBC 3.32 10x6/uL (4.00-5.40); RDW 16.5 % (11.5-14.5); WBC 7.3 10x3/uL (4.8-10.8)
[2017-03-19 04:06] LABS: ANION GAP 23.6 mmol/L (8-16); CALCIUM 8.8 mg/dL (8.5-10.1); CARBON DIOXIDE 17.8 mmol/L (21.0-32.0); CREATININE - SERUM 5.9 mg/dL (0.6-1.3); POTASSIUM - SERUM 4.4 mmol/L (3.5-5.1)
[2017-03-19 04:18] LABS: INR 1.43 (0.85-1.17); PROTIME 17.4 SECONDS (11.6-15.0)
[2017-03-19 04:19] LABS: APTT 59.7 SECONDS (22.8-39.4)
--- NOTE | 2017-03-19 05:00 | NUR ---
PT REPOSITIONED IN BED. BED LOW AND LOCKED, CALL LIGHT IN REACH. AT BEDSIDE. VSS ATT, WILL CONTINUE POC.
--- NOTE | 2017-03-19 07:10 | NUR ---
REC'ED REPORT FROM OUTGOING RN - PT'S FAMILY AT BEDSIDE - PT RESTING SUPINE IN BED - BLE ELEVATED WITH WEDGE - ASSESSMENT COMPLETE - CPOC
--- NOTE | 2017-03-19 08:15 | NUR ---
ASSESSMENT COMPLETE - FAMILY AT BEDSIDE - DISCUSSED PLAN OF CARE WITH SPOUSE - AND DTR. ANSWERED ALL QUESTIONS TO THEIR SATISFACTION.
--- NOTE | 2017-03-19 09:00 | NUR ---
PULLED 0900 MEDICATIONS FOR PT - HYPOTENSIVE - STARTED DOPAMINE IV PER MD ORDERED TO KEEP MAP >60 - NOTIFIED DR. Fermin (HE WAS ON UNIT).
--- NOTE | 2017-03-19 09:10 | NUR ---
ASKED SUPERVISOR PHOSPHORUS PROCESSING INTO ROOM FOR ASSISTANCE - HYPOTENSIVE AND TACHYCARDIA - CRASH CART PULLED INTO ROOM - PACER PATCHES PLACED ON PT'S CHEST. - SPOUSE STATED NO CHEST COMPRESSIONS AND NO INTUBATIONS - NOITIFED DR. FRANCO - DR. FRANCO DISCUSSED PLAN OF CARE WITH AND DAUGHTER - 0930 PT PLACED ON COMFORT CARE PER DR. Franco AND FAMILY - FAMILY IN FAMILY ROOM. [address] CHERY TO INFORM OF PT'S CONDITION - AWAITING CALL BACK. 11:40 DR. Franco AT BEDSIDE - PRONOUCED TIME OF 11:45 11:53 CALLED [facility] SPOKE TO KATELIN BANDA AT 11:55 - PT DOES NOT MEET CRITERIA DUE TO AGE. 12:40 NOTIFIED [facility]
[2017-03-19 09:37] LABS: INR 1.54 (0.85-1.17); PROTIME 18.5 SECONDS (11.6-15.0)
[2017-03-19 09:38] LABS: APTT 69.9 SECONDS (22.8-39.4)
--- NOTE | 2017-03-19 11:35 | NUR ---
TALKED TO DR. CHERY INFORMED OF PT'S AYSTOLE. MD WILL EITHER NOTIFY ER MD OR WILL COME TO UNIT TO CALL TIME OF - FAMILY WANTS TO USE [facility] BUT PT HAS A BURIAL POLICY AT [facility]. MORE FAMILY TO COME TO UNIT - AND DTR ARE IN FAMILY ROOM -
--- NOTE | 2017-03-19 12:01 | NUR ---
CALLED [facility] - SPOKE TO ANSWERING SERVICE - KATELIN BANDA CALLED THIS RN - OKAY TO RELEASE BODY R/T AGE. CASE#: [id number]. CALLED [facility] - NOT ABLE TO LOCATE POLICY - FAMILY WILL F/U AND NOTIFY THIS RN. FAMILY IN FAMILY ROOM AND IN PT'S ROOM
--- NOTE | 2017-03-19 13:43 | NUR ---
[facility] AT BEDSIDE - THIS RN REMOVED ALL IVs, MONITOR, IJ, OXYGEN TUBING, ETC. FROM PT's BODY - PT TRASFERRED VIA STRETCHER BY READING PROFESSOR (MR. GONZALEZ)
== END 2017-03-19 13:30 | DRG 271 ==
LOC: D.ER 12:53 → D.M2 16:35 → D.ICU 03-18 16:27
PROVIDERS: Emergency Medicine; Internal Medicine Hematology & Oncology; Internal Medicine Nephrology; Nurse Practitioner Family; Radiology Diagnostic Radiology; ADMIT Family Medicine Adult Medicine
PROC: 04CT3ZZ Extirpation of Matter from Right Peroneal Artery, Percutaneous Approach (ICD-10-PCS; 2017-03-18)
PROC: 047P3ZZ Dilation of Right Anterior Tibial Artery, Percutaneous Approach (ICD-10-PCS; 2017-03-18)
PROC: 047R3ZZ Dilation of Right Posterior Tibial Artery, Percutaneous Approach (ICD-10-PCS; 2017-03-18)
PROC: 02HV33Z Insertion of Infusion Device into Superior Vena Cava, Percutaneous Approach (ICD-10-PCS; 2017-03-18)
PROC: B5181ZA Fluoroscopy of Superior Vena Cava using Low Osmolar Contrast, Guidance (ICD-10-PCS; 2017-03-18)
PROC: 047M3Z1 Dilation of Right Popliteal Artery using Drug-Coated Balloon, Percutaneous Approach (ICD-10-PCS; principal; 2017-03-18 09:30)
DX: I13.0 Hypertensive heart and chronic kidney disease with heart failure and stage 1 through stage 4 chronic kidney disease, or unspecified chronic kidney disease (principal); N17.9 Acute kidney failure, unspecified; E87.1 Hypo-osmolality and hyponatremia; E87.2 Acidosis; L03.115 Cellulitis of right lower limb; I50.22 Chronic systolic (congestive) heart failure; I50.9 Heart failure, unspecified; N18.9 Chronic kidney disease, unspecified; E11.22 Type 2 diabetes mellitus with diabetic chronic kidney disease; I25.10 Atherosclerotic heart disease of native coronary artery without angina pectoris; E86.0 Dehydration; E88.09 Other disorders of plasma-protein metabolism, not elsewhere classified; C50.919 Malignant neoplasm of unspecified site of unspecified female breast; Z79.01 Long term (current) use of anticoagulants; Z95.1 Presence of aortocoronary bypass graft; Z86.73 Personal history of transient ischemic attack (TIA), and cerebral infarction without residual deficits; I42.9 Cardiomyopathy, unspecified; R19.7 Diarrhea, unspecified; Z66 Do not resuscitate; I48.91 Unspecified atrial fibrillation; I99.8 Other disorder of circulatory system; I73.9 Peripheral vascular disease, unspecified